=== PATIENT | female | born 1975 | race Hispanic/Latino ===

== ENCOUNTER 2021-11-17 20:11 | Inpatient (IN) | payer BC, MEDICAID, OTHER ==
[~2021-11-17] VITALS: Ht 154.9 cm; Wt 90.7 kg
[2021-11-17 20:36] LABS: APPEARANCE,URINE SL CLOUDY (CLEAR); BILIRUBIN,URINE SMALL (NEGATIVE); COLOR,URINE YELLOW (YELLOW); GLUCOSE, URINE (UA) NEGATIVE (NEGATIVE); KETONES,URINE 15 mg/dL (NEGATIVE); LEUKOCYTE ESTERASE ,URINE TRACE (NEGATIVE); NITRATE,URINE NEGATIVE (NEGATIVE); OCCULT BLOOD,URINE NEGATIVE (NEGATIVE); PH,URINE 5.5 (5.0-8.0); PROTEIN,URINE 30 mg/dL (NEGATIVE); UROBILINOGEN,URINE 0.2 mg/dL (0.2-1.0)
[2021-11-17 20:46] LABS: BACTERIA,URINE Few /HPF (None Seen); RBC,URINE 0-1 /HPF (0-1)
[2021-11-17 20:47] LABS: HYALINE CASTS, URINE 0-1 /LPF (0-1 /LPF); MUCUS,URINE Few LPF (None Seen); SQUAMOUS EPITHELIAL CELL,UR Few /HPF (0-2)
[2021-11-17 20:48] LABS: BASOPHILS % (AUTO) 0.7 % (0.0-5.0); EOSINOPHILS % (AUTO) 1.4 % (0.0-8.0); HEMATOCRIT 41.2 % (36-48); LYMPHOCYTES % (AUTO) 34.7 % (21.0-51.0); MEAN CORPUSCULAR HEMOGLOBIN 29.3 pg (27.0-33.0); MEAN CORPUSCULAR HGB CONC 33.7 g/dL (32.0-36.0); MEAN CORPUSCULAR VOLUME 86.9 fL (79-99); MONOCYTES % (AUTO) 4.7 % (3.0-13.0); NEUTROPHILS % (AUTO) 58.2 % (40.0-77.0); PLATELET COUNT (AUTO) 319 K/uL (130-400); RED BLOOD CELL COUNT(AUTO) 4.74 MIL/uL (4.00-5.50); RED CELL DISTRIBUTION WIDTH 12.3 % (11.0-15.5); WHITE BLOOD COUNT (AUTO) 14.8 K/uL (4.8-10.8)
[2021-11-17 21:03] LABS: CREATININE 0.5 mg/dL (0.5-1.5); POTASSIUM 3.9 mmol/L (3.5-5.1)
[2021-11-17 21:08] LABS: TOTAL PROTEIN, SERUM 8.7 g/dL (6.0-8.3)
[2021-11-17] MEDS ORDERED: ONDANSETRON 4MG INJ ONE (21:36)
[2021-11-17] MEDS ORDERED: MORPHINE 4 MG SYG ONE (21:36)
[2021-11-17] MEDS ORDERED: KETOROLAC 15MG/ML VIAL (15MG/ML) ONE (21:36)
[2021-11-17] MEDS ORDERED: ONDANSETRON 4MG INJ IVP ONE (22:00)
[2021-11-17] MEDS ORDERED: KETOROLAC 15MG/ML VIAL (15MG/ML) IV ONE (22:00)
[2021-11-17] MEDS ORDERED: MORPHINE 4 MG SYG IVP ONE (22:00)
[2021-11-17] MEDS ORDERED: ZOSYN 3.375GM +NS 50ML IV SCH (22:00)
[2021-11-17] MEDS ORDERED: ACETAMINOPHEN 325 MG TAB PO PRN (23:30)
[2021-11-17] MEDS ORDERED: ACETAMINOPHEN WITH CODEINE 1 TAB TAB PO PRN (23:30)
[2021-11-17] MEDS ORDERED: HYDRALAZINE 20MG/ML VIAL IV PRN (23:30)
[2021-11-17] MEDS ORDERED: ONDANSETRON 4MG INJ IV PRN (23:30)
[2021-11-17] MEDS ORDERED: DEXTROSE 50%-WATER 50 ML DISP.SYRIN IV PRN (23:30)
[2021-11-17] MEDS ORDERED: LACTULOSE 20 GM/30 ML UDCUP PO PRN (23:30)
[2021-11-17] MEDS ORDERED: MAG/ALUM/SIMETH 30 ML UDCUP PO PRN (23:30)
[2021-11-17] MEDS ORDERED: NITROGLYCERIN 0.4 MG SL TAB SL PRN (23:30)
[2021-11-17] MEDS ORDERED: GLUCAGON 1MG KIT 1 MG ML IM PRN (23:30)
[2021-11-17] MEDS ORDERED: GUAIFENESIN-DM 200/20 MG 10 ML PO PRN (23:30)
[2021-11-17] MEDS ORDERED: DIPHENHYDRAMINE HCL 25 MG CAPSULE PO PRN (23:30)
[2021-11-17] MEDS: 0.9%NACL 1000ML 1,000 ML IV SCH (23:35)
[2021-11-17 23:49] LABS: HEMOGLOBIN A1C 7.3 % (4.0-6.0)
[2021-11-18] MEDS ORDERED: MORPHINE 2 MG SYG IVP PRN (01:00)
[2021-11-18] MEDS: ZOSYN 3.375GM+NS 50ML 50 ML IV SCH ×3 (05:43→21:22)
[2021-11-18] MEDS: INSULIN HUMULIN R 100 UNIT/ML 3ML SQ SCH ×4 (07:30→21:00)
[2021-11-18] MEDS: FAMOTIDINE 20MG VIAL IV SCH ×2 (09:08→21:22)
[2021-11-18 09:51] VITALS: BP 112/70
[2021-11-18] MEDS: 0.9%NACL 1000ML 1,000 ML IV SCH ×2 (10:04→18:09)
[2021-11-18] MEDS ORDERED: METF-527 PO (10:10)
[2021-11-18] MEDS ORDERED: GLIM2TAB30 PO (10:13)
[2021-11-18] MEDS ORDERED: LOSA50TA64 PO (10:13)
[2021-11-18 12:05] VITALS: BP 92/56
[2021-11-18 15:20] VITALS: BP 133/78
[2021-11-18 20:29] VITALS: BP 135/75
[2021-11-18 23:45] VITALS: BP 143/77
[2021-11-19 04:17] LABS: BASOPHILS % (AUTO) 0.5 % (0.0-5.0); EOSINOPHILS % (AUTO) 1.7 % (0.0-8.0); LYMPHOCYTES % (AUTO) 46.3 % (21.0-51.0); MEAN CORPUSCULAR HEMOGLOBIN 29.8 pg (27.0-33.0); MEAN CORPUSCULAR HGB CONC 33.8 g/dL (32.0-36.0); MEAN CORPUSCULAR VOLUME 88.1 fL (79-99); MONOCYTES % (AUTO) 5.7 % (3.0-13.0); NEUTROPHILS % (AUTO) 45.3 % (40.0-77.0); PLATELET COUNT (AUTO) 224 K/uL (130-400); RED BLOOD CELL COUNT(AUTO) 3.86 MIL/uL (4.00-5.50); RED CELL DISTRIBUTION WIDTH 12.5 % (11.0-15.5); WHITE BLOOD COUNT (AUTO) 8.6 K/uL (4.8-10.8)
[2021-11-19 04:31] VITALS: BP 126/77
[2021-11-19 04:34] LABS: CREATININE 0.5 mg/dL (0.5-1.5); MAGNESIUM 1.9 mg/dL (1.80-2.40); POTASSIUM 3.4 mmol/L (3.5-5.1); TOTAL PROTEIN, SERUM 6.8 g/dL (6.0-8.3)
[2021-11-19] MEDS: 0.9%NACL 1000ML 1,000 ML IV SCH ×2 (05:30→15:30)
[2021-11-19] MEDS: ZOSYN 3.375GM+NS 50ML 50 ML IV SCH ×2 (05:37→14:51)
[2021-11-19] MEDS: INSULIN HUMULIN R 100 UNIT/ML 3ML SQ SCH ×3 (06:38→16:30)
[2021-11-19] MEDS: FAMOTIDINE 20MG VIAL IV SCH (10:14)
[2021-11-19] MEDS ORDERED: AMOX500C2 PO (11:37)
[2021-11-19 11:43] VITALS: BP 139/75
[2021-11-19 16:32] VITALS: BP 139/74
== END 2021-11-19 18:23 | disposition home or self-care (01) | DRG 446 ==
LOC: EDH 20:11 → INTOOBSV 20:12 → EDHIP 20:12 → OBSVTOIN 20:12 → 4BH 11-18 09:13
PROVIDERS: ADMIT Hospitalist; ATTEND Hospitalist
DX: K80.00 Calculus of gallbladder with acute cholecystitis without obstruction (principal); E11.9 Type 2 diabetes mellitus without complications; Z20.822 Contact with and (suspected) exposure to COVID-19; I10 Essential (primary) hypertension; K82.8 Other specified diseases of gallbladder; Z98.891 History of uterine scar from previous surgery
CPT/HCPCS: 36415; 76705; 78226; 80053; 81001; 81025; 82948; 83036; 83690; 83735; 84145; 85025; 87635; A9537; G0378; J1885; J2270; J2405; J2543; J3490